=== PATIENT | male | born 2005 | race Hispanic/Latino ===

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

== ENCOUNTER 2024-03-19 17:22 | Emergency (ER) | payer MEDICAID, OTHER ==
[~2024-03-19] VITALS: Ht 167.6 cm; Wt 64.9 kg
[2024-03-19 19:32] VITALS: BP 138/96; PULSE 61; RESP 16; TEMP 97.8; O2SAT 98
[2024-03-19] MEDS ORDERED: CYCL10TA16 PO (19:43)
[2024-03-19] MEDS ORDERED: IBUP-2070 PO (19:43)
--- NOTE | 2024-03-19 19:43 | ERN ---
ED Note History of Present Illness Stated Complaint: BACK PAIN Chief Complaint: Back Pain-No Injury Time Seen by MD: 17:27 Time Seen by Midlevel: 17:27 Dictation: The patient is a 18-year-old male with no past medical history who presents to the emergency department with complaints of right scapular pain that has been going on for a year. 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 No other complaints reported. Allergies: Coded Allergies: No Known Allergies (Unverified Allergy, Unknown, 11/29/18) Home Meds Active Scripts Cyclobenzaprine HCl (Flexeril) 10 Mg Tab, 10 MG PO TID for muscle sstiffness, #14 TAB 0 Refills Prov:HUTCHISONLAVINIA CHACON [employer] 03/19/24 Ibuprofen (Ibuprofen) 600 Mg Tablet, 600 MG PO Q6H PRN for PAIN, #10 TAB Prov:FOSTERLAVINIA [employer] 03/19/24 Past Medical History Past Medical History: No Pertinent History Surgical History: None Surgical History Other: ARM RN Note Reviewed/Agreed w/PFSH: Yes Review of System Dictation Constitutional: Negative for fever,chills, and weight loss Eyes: Negative for injury, pain,redness, and discharge ENT: Negative for injury,pain or swelling Cardiovascular: Negative for chest pain, palpitations, and edema Respiratory: Negative for shortness of breath, cough, and wheezing, Abdomen/GI: Negative for abdominal pain, nausea, vomiting, diarrhea, and constipation Back: Negative for injury and pain : Negative for injury, bleeding and discharge MS/Extremity: Negative for injury and deformity positive for right upper back Skin: Negative for rash, and discoloration Neuro: Negative for headache, weakness, numbness, tingling, and seizure Psych: Negative for suicide ideation, homicidal ideation, and hallucinations Initial Vital Sign VS Vital Signs Date Time Temp Pulse Resp B/P (MAP) Pulse Ox O2 Delivery O2 Flow Rate FiO2 03/19/24 17:35 97.9 61 16 138/96 98 Room Air 0 03/19/24 19:32 21 Physical Exam Dictation Vital Signs reviewed General Appearance: Alert, oriented x 3, no acute distress, well developed, nourished. Head and Face: non-traumatic. Eyes: PERRL, pink conjunctivas, eyelid no trauma, anterior chamber with arcus senilis. Ears: Pinnas intact and no signs of trauma or erythema ear canals clear and no discharge TM no erythema Nose: No discharge, no bleeding. Oropharynx: Mouth normal, tongue pink. pharynx clear,no erythema, tonsils no exudates, no abscesses noted, mucous membrane moist Neck: Supple, non-tender, no thyromegaly, no masses, no JVD, no bruits Breast:Deferred Chest:No tenderness, no crepitus, no paradoxical movement, no retractions Lungs:Clear, well-ventilated, symmetric, no rales, no wheezing, no rhonchi, no stridor, good breath sounds bilaterally Heart: Regular rate, regular rhythm, no murmur, no gallops Vascular: no peripheral edema, Abdomen: Soft, positive bowel sounds, nondistended, no guarding, nontender, no rebound, no masses no hepatomegaly, no splenomegaly, no Tamayo's sign, no hernias. Rectal: Deferred Genital: Deferred Neurological: Normal speech, motor function intact, sensory function intact Musculoskeletal: Neck nontender, full range of motion, back nontender, full range of motion, Extremities: nontender, full range of motion full range of motion to her extremities. Skin: Color pink, dry, no turgor, no rash, no lacerations, no abrasions, no contusions. Lymphatic: Deferred Results (Laboratory/Radiology) Labs Reviewed?: Yes ED Course ED Course Orders Procedure Category Date Status Time Scapula Comp Rt RAD 03/19/24 Taken 17:52 Ketorolac 60mg/2ml PHA 03/19/24 Complete (Toradol 60mg/2ml) 18:00 Cyclobenzaprine Hcl PHA 03/19/24 Complete (Cyclobenzaprine Hcl 18:00 Current Medications Medications (Trade) Dose Ordered Sig/Tonia Route PRN Reason Start Time Stop Time Status Last Admin Dose Admin Cyclobenzaprine HCl (Cyclobenzaprine HCl) 10 mg ONCE ONCE PO 03/19/24 18:00 03/19/24 18:01 DC Ketorolac Tromethamine (toRADol 60MG/ 2ML) 60 mg ONCE ONCE IM 03/19/24 18:00 03/19/24 18:01 DC Vital Signs Date Time Temp Pulse Resp B/P (MAP) Pulse Ox O2 Delivery O2 Flow Rate FiO2 03/19/24 19:32 97.9 61 16 138/96 98 Room Air* 0 21 03/19/24 17:35 97.9 61 16 138/96 98 Room Air 0 Medical Decision Making MDM The patient is a 18-year-old male with no past medical history who presents to the emergency department with complaints of right scapular pain that has been going on for a year. 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 No other complaints reported. X-ray revealed no acute fractures. Patient continues in no acute distress will be discharged to follow up with PCP. Differential diagnosis: Muscle strain, scapular fracture, scapular contusion Need for hospitalization: Patient does not meet criteria for hospitalization. There are no social concerns with this patient. DX & DISP Disposition: Discharge Departure Impression: Primary Impression: Chronic pain of scapula Additional Impression: Muscle strain Condition: Stable Scripts Cyclobenzaprine HCl (Flexeril) 10 Mg Tab 10 MG PO TID for muscle sstiffness, #14 TAB 0 Refills Prov: LAVINIA HUTCHISON 03/19/24 Ibuprofen (Ibuprofen) 600 Mg Tablet 600 MG PO Q6H PRN for PAIN, #10 TAB Prov: LAVINIA HUTCHISON 03/19/24 Additional Instructions: FOLLOW-UP WITH PRIMARY CARE PROVIDER IN 1 TO 2 DAYS. TAKE MEDICATIONS DIRECTED HERE IN THE EMERGENCY ROOM. OKAY TO CONTINUE HOME MEDICATIONS UNLESS OTHERWISE DISCUSSED DURING YOUR VISIT IN THE EMERGENCY ROOM TODAY. RETURN TO YOUR NEAREST EMERGENCY ROOM IF SYMPTOMS WORSEN OR IF THERE IS NO IMPROVEMENT. CALL 911 IF YOU NEED IMMEDIATE ASSISTANCE. TAKE TYLENOL OR MOTRIN [id number] NEEDED AND IF NO CONTRAINDICATIONS ARE PRESENT. INCREASE ORAL HYDRATION. A WOUND CULTURE OR URINE CULTURE WAS ORDERED HERE IN THE EMERGENCY ROOM DEPARTMENT PLEASE FOLLOW-UP WITH PRIMARY CARE PROVIDER AND ADVISE THEM TO GET REPEAT PORTS FROM OUR FACILITY. IF YOU HAD ANY MILLY WRAP/SPLINTS THAT WERE APPLIED HERE, PLEASE DO NOT REMOVE THEM UNTIL YOU SEE YOUR PRIMARY CARE OR SPECIALTY. Referrals: NONE (PCP) Time of Disposition: 19:42 I have reviewed the case, and I agree with, Diagnosis and Plan LAVINIA HUTCHISON Mar 19, 2024 19:43
[2024-03-19] MEDS: ketOROlac 60 MG VIAL (30MG/ML) IM ONE (20:01)
[2024-03-19] MEDS: CYCLOBENZAPRINE HCL 10 MG TABLET PO ONE (20:01)
--- NOTE | 2024-03-20 08:25 | HMCIMG ---
SCAPULA COMP RT REASON: pain TECHNIQUE: 2 views were obtained. FINDINGS: There is no evidence of fracture or dislocation. There is no joint effusion. The soft tissues appear unremarkable. There is no evidence of a radiopaque foreign body. IMPRESSION: No acute findings.
== END 2024-03-19 20:08 | disposition home or self-care (01) ==
LOC: EDH 17:22
DX: G89.29 Other chronic pain (principal); M25.511 Pain in right shoulder; T14.8XXA Other injury of unspecified body region, initial encounter; X58.XXXA Exposure to other specified factors, initial encounter; Y93.89 Activity, other specified; Y92.89 Other specified places as the place of occurrence of the external cause; Y99.8 Other external cause status
CPT/HCPCS: 99283; 73010; 96372; J1885